=== PATIENT | male | born 1965 | race Caucasian/White ===

== ENCOUNTER 2019-01-06 13:16 | Emergency (ER) | payer OTHER ==
[2019-01-06] MEDS ORDERED: Proparacaine 0.5% Opth 15 ML BOT ONE (13:46)
[2019-01-06] MEDS ORDERED: Fluorescein Opthalmic Strip ONE (13:46)
[2019-01-06] MEDS ORDERED: Acetaminophen 500 MG TAB ONE (14:30)
== END 2019-01-06 18:10 | disposition short-term general hospital (02) ==
LOC: ERS 13:16
DX: H54.61 Unqualified visual loss, right eye, normal vision left eye (principal)
CPT/HCPCS: 99284